=== PATIENT | male | born 1950 | race Caucasian/White ===

== ENCOUNTER 2021-03-04 12:33 | Inpatient (IN) | payer OTHER ==
[~2021-03-04] VITALS: Ht 177.8 cm; Wt 95.3 kg
[2021-03-04] MEDS ORDERED: ADULT LOW DOSE81 MG PO (20:44)
[2021-03-04] MEDS ORDERED: ELIQUIS5 MG PO (20:45)
[2021-03-04] MEDS ORDERED: CRESTOR 10 MG T10 MG PO (20:45)
[2021-03-04] MEDS ORDERED: CARVEDILOL12.5 MG PO (20:45)
[2021-03-04] MEDS ORDERED: MULTAQ 400 MG400 MG PO (20:46)
[2021-03-04 23:14] LABS: HEMOGLOBIN 15.1 gm/dl (14.0-17.5); RED BLOOD COUNT 4.89 M/UL (4.20-5.50); WHITE BLOOD COUNT 11.1 K/UL (4.5-11.0)
[2021-03-04 23:17] LABS: BORDETELLA PARAPERTUSSIS Not Detected (Not Detectd); BORDETELLA PERTUSSIS Not Detected (Not Detectd); CHLAMYDIA PNEUMONIAE Not Detected (Not Detectd); CORONAVIRUS HKU1 Not Detected (Not Detectd); CORONAVIRUS NL63 Not Detected (Not Detectd); CORONAVIRUS OC43 Not Detected (Not Detectd); CORONOAVIRUS 229E Not Detected (Not Detectd); HUMAN METAPNEUMOVIRUS Not Detected (Not Detectd); HUMAN RHINOVIRUS/ENTEROVIRUS Not Detected (Not Detectd); INFLUENZA B Not Detected (Not Detectd); MYCOPLASMA PNEUMONIAE Not Detected (Not Detectd); PARAINFLUENZA VIRUS 1 Not Detected (Not Detectd); PARAINFLUENZA VIRUS 2 Not Detected (Not Detectd); PARAINFLUENZA VIRUS 3 Not Detected (Not Detectd); PARAINFLUENZA VIRUS 4 Not Detected (Not Detectd); RESPIRATORY SYNCYTIAL VIRUS Not Detected (Not Detectd)
[2021-03-05 02:17] LABS: INFLUENZA A DETECTED (Not Detectd); SARS-CoV-2 NOT DETECTED (Not Detectd)
[2021-03-05 05:56] LABS: HEMOGLOBIN 14.5 gm/dl (14.0-17.5); RED BLOOD COUNT 4.83 M/UL (4.20-5.50); WHITE BLOOD COUNT 10.6 K/UL (4.5-11.0)
[2021-03-05 06:30] LABS: BUN/CREATININE RATIO 22 (0-10)
[2021-03-06 05:48] LABS: HEMOGLOBIN 14.7 gm/dl (14.0-17.5); RED BLOOD COUNT 4.94 M/UL (4.20-5.50); WHITE BLOOD COUNT 11.5 K/UL (4.5-11.0)
[2021-03-06 06:05] LABS: BUN/CREATININE RATIO 30 (0-10)
[2021-03-07 06:32] LABS: RED BLOOD COUNT 4.96 M/UL (4.20-5.50); WHITE BLOOD COUNT 8.9 K/UL (4.5-11.0)
[2021-03-07 06:59] LABS: BUN/CREATININE RATIO 32 (0-10)
[2021-03-07] MEDS ORDERED: PROTONIX 40 MG40 M1 PO (14:05)
[2021-03-07] MEDS ORDERED: AUGMENTIN 875-1 EACH PO (14:05)
[2021-03-07] MEDS ORDERED: TAMIFLU 75 MG C75 MG PO (14:05)
[2021-03-07] MEDS ORDERED: AEROECLIPSE II1 EACH MC (14:05)
[2021-03-07] MEDS ORDERED: IPRAT-ALBUT 0.5-3 ML NEB (14:05)
[2021-03-07] MEDS ORDERED: MEDROL DOSEPAK 24 MG PO (14:05)
--- NOTE | 2021-03-07 15:16 | NUR ---
02 SAT DOWN TO 87% ON ROOM AIR
== END 2021-03-07 17:16 | disposition home or self-care (01) | DRG 193 ==
LOC: M/S 21:08 → CCU 21:08 → M/S 03-06 14:10
PROVIDERS: Internal Medicine; ADMIT Internal Medicine
PROC: 5A09457 Assistance with Respiratory Ventilation, 24-96 Consecutive Hours, Continuous Positive Airway Pressure (ICD-10-PCS; 2021-03-04)
PROC: B24BZZZ Ultrasonography of Heart with Aorta (ICD-10-PCS; principal; 2021-03-05)
DX: J10.08 Influenza due to other identified influenza virus with other specified pneumonia (principal); J96.01 Acute respiratory failure with hypoxia; I21.A1 Myocardial infarction type 2; Z20.822 Contact with and (suspected) exposure to COVID-19; J96.02 Acute respiratory failure with hypercapnia; E87.2 Acidosis; J90 Pleural effusion, not elsewhere classified; I48.20 Chronic atrial fibrillation, unspecified; I13.0 Hypertensive heart and chronic kidney disease with heart failure and stage 1 through stage 4 chronic kidney disease, or unspecified chronic kidney disease; I50.32 Chronic diastolic (congestive) heart failure; D69.6 Thrombocytopenia, unspecified; N18.9 Chronic kidney disease, unspecified; I48.0 Paroxysmal atrial fibrillation; F17.210 Nicotine dependence, cigarettes, uncomplicated; I25.10 Atherosclerotic heart disease of native coronary artery without angina pectoris; J15.9 Unspecified bacterial pneumonia; J44.0 Chronic obstructive pulmonary disease with (acute) lower respiratory infection; Z79.01 Long term (current) use of anticoagulants; Z86.73 Personal history of transient ischemic attack (TIA), and cerebral infarction without residual deficits; Z79.82 Long term (current) use of aspirin; Z95.5 Presence of coronary angioplasty implant and graft; Z82.49 Family history of ischemic heart disease and other diseases of the circulatory system; Z72.89 Other problems related to lifestyle; Z90.49 Acquired absence of other specified parts of digestive tract; Z98.890 Other specified postprocedural states; I25.2 Old myocardial infarction
CPT/HCPCS: ECHO; 36415; 36600; 71045; 80048; 80053; 82550; 82553; 82803; 83880; 84484; 85025; 85610; 85730; 86140; 87633; 93005; 93306; 94640; 94660; 94664; 94760; J0456; J0696; J1644; J1940; J2920; J7030